=== PATIENT | female | born 1955 | race African-American/Black ===

== ENCOUNTER 2017-03-13 18:29 | Emergency (ER) | payer MEDICAID ==
[~2017-03-13] VITALS: Ht 160 cm; Wt 85.0 kg
[~2017-03-13 18:29] MED LIST: 1-ME1LIQ PO; ASPI325T PO
[2017-03-13] MEDS ORDERED: ASPI81CH37 CHEW (20:54)
[2017-03-13] MEDS ORDERED: AMLO10TA2 PO (20:54)
[2017-03-13] MEDS ORDERED: LISI-519 PO (20:54)
[2017-03-13] MEDS ORDERED: DONE5TAB7 PO (20:54)
--- NOTE | 2017-03-13 21:02 | PD ---
HPI Chief Complaint: Fall Time Seen by Provider: 20:58 Travel History International Travel<30 days: No Contact w/Intl Traveler<30days: No Traveled to known affect area: No History of Present Illness HPI 62-year-old female that presents to the ED for evaluation of fall at home. Patient has a history of what appears to be early dementia. Patient is alert and oriented to person and place but not apparent to time. She does have some sort of confusion. Patient was found by family on the floor. Per patient she fell from a barstool and landed on her left knee. Patient complains of pain to her left knee, left forearm, left hip, left foot. She denies hitting her head or losing consciousness. She does not take any blood thinners. She states that her pain is 5 out of 10. Per patient she cannot get up on her own. Unclear as to how long she had fallen 4. She has no allergies to medication. Denies any chest pain or shortness of breath. No abdominal pain. No nausea or vomiting. History is somewhat limited because of patient's dementia but she does appear to answer questions a properly at this time. No family was present at the initial evaluation. [employer] [facility] Past Medical History Asthma: No Blood Disorders: No Anxiety: No Depression: No Heart Rhythm Problems: No Cardiovascular Problems: No High Cholesterol: No Chemotherapy: No Chest Pain: No Congestive Heart Failure: No COPD: No Diabetes: No Diminished Hearing: No Endocrine: No Gastrointestinal Disorders: No Genitourinary: No Hypertension: Yes Immune Disorder: No Musculoskeletal: No Neurologic: No Psychiatric: No Reproductive: No Respiratory: No Radiation Therapy: No Sleep Apnea: No Thyroid Disease: No Past Surgical History Section: Yes Other Surgery: Yes () Social History Alcohol Use: No Tobacco Use: No Substance Use: No Allergies-Medications (Allergen,Severity, Reaction): Coded Allergies: No Known Allergies (Verified , 03/13/17) Reported Meds & Prescriptions Reported Meds & Active Scripts Active Reported Amlodipine (Amlodipine Besylate) 10 Mg Tab 10 Mg PO DAILY Lisinopril 5 Mg Tab 5 Mg PO DAILY Donepezil 5 Mg Tab 5 Mg PO HS Aspirin Low Dose (Aspirin) 81 Mg Chew 81 Mg CHEW DAILY Review of Systems ROS Limitations: Poor Historian Except as stated in HPI: all other systems reviewed are Neg Physical Exam Narrative GENERAL: SKIN: Warm and dry. HEAD: Atraumatic. Normocephalic. EYES: Pupils equal and round. No scleral icterus. No injection or drainage. ENT: No nasal bleeding or discharge. Mucous membranes pink and moist. Tongue is midline. No uvula deviation. NECK: Trachea midline. No JVD. CARDIOVASCULAR: Regular rate and rhythm. No murmurs, S3, S4. RESPIRATORY: No accessory muscle use. Clear to auscultation. Breath sounds equal bilaterally. GASTROINTESTINAL: Abdomen soft, non-tender, nondistended. Hepatic and splenic margins not palpable. MUSCULOSKELETAL: Extremities without clubbing, cyanosis, or edema. No obvious deformities. Full range of motion of the upper extremities with no obvious deformity. Patient does have some left forearm tenderness to palpation but no obvious deformity. Patient has no cervical, thoracic, lumbar spine tenderness to palpation. Patient does have some bruising and swelling on the left knee and she has some pain with movement. Pain with movement also on the left hip. 2+ pulses in the upper and lower extremities bilaterally. NEUROLOGICAL: Awake and alert. No obvious cranial nerve deficits. Motor grossly within normal limits. Five out of 5 muscle strength in the arms and legs. Normal speech. PSYCHIATRIC: Appropriate mood and affect; insight and judgment normal. Data Data Orders Ankle, Complete ([id number]) (03/13/17 20:26) Femur (Ap & Lat/2vws) (03/13/17 20:26) Forearm (2vws) (03/13/17 20:26) Knee, Complete (4vws) (03/13/17 20:26) Ice/Cold Pack (03/13/17 20:26) Pelvis, Ap Only (Routine) (03/13/17 20:26) Foot, Complete ([id number]) (03/13/17 ) Complete Blood Count With Diff (03/13/17 20:42) Basic Metabolic Panel (Bmp) (03/13/17 20:42) Magnesium (Mg) (03/13/17 20:42) Ct Brain W/O Iv Contrast(Rout) (03/13/17 ) Labs Laboratory Tests Test 03/13/17 21:20 White Blood Count 5.3 TH/MM3 Red Blood Count 4.36 MIL/MM3 Hemoglobin 13.1 GM/DL Hematocrit 38.3 % Mean Corpuscular Volume 87.9 FL Mean Corpuscular Hemoglobin 30.1 PG Mean Corpuscular Hemoglobin 34.2 % Concent Red Cell Distribution Width 13.7 % Platelet Count 257 TH/MM3 Mean Platelet Volume 8.8 FL Neutrophils (%) (Auto) 44.4 % Lymphocytes (%) (Auto) 44.4 % Monocytes (%) (Auto) 8.4 % Eosinophils (%) (Auto) 2.1 % Basophils (%) (Auto) 0.7 % Neutrophils # (Auto) 2.3 TH/MM3 Lymphocytes # (Auto) 2.3 TH/MM3 Monocytes # (Auto) 0.4 TH/MM3 Eosinophils # (Auto) 0.1 TH/MM3 Basophils # (Auto) 0.0 TH/MM3 CBC Comment DIFF FINAL Differential Comment MDM Medical Decision Making Medical Screen Exam Complete: Yes Emergency Medical Condition: Yes Medical Record Reviewed: Yes Interpretation(s) Last Impressions Radius/Ulna X-Ray 03/13/172025 Signed Impressions: Service Date/Time: February 20:52 - CONCLUSION: Unremarkable study. Constantine Blanc MD Pelvis X-Ray 03/13/172025 Signed Impressions: Service Date/Time: February 20:58 - CONCLUSION: No definite fracture is seen for technique. Constantine Blanc MD Knee X-Ray 03/13/172025 Signed Impressions: Service Date/Time: February 21:06 - CONCLUSION: Unremarkable study. Constantine Blanc MD Femur X-Ray 03/13/172025 Signed Impressions: Service Date/Time: February 21:00 - CONCLUSION: Unremarkable study. Constantine Blanc MD Ankle X-Ray 03/13/172025 Signed Impressions: Service Date/Time: February 20:42 - CONCLUSION: No definite fracture is seen for technique. Constantine Blanc MD Foot X-Ray 03/13/17 0000 Signed Impressions: Service Date/Time: February 20:46 - CONCLUSION: Chronic changes and no evidence for acute fracture. Constantine Blanc MD CT head negative Differential Diagnosis Fall versus acute versus syncope versus bruise versus contusion versus fracture Narrative Course 62-year-old female that presents to the ED for evaluation of fall. Patient was properly examined and was found to have signs and symptoms consistent appears to be fall. At This time I recommend labs and imaging. Labs and imaging showed no sign of acute disease. Family was present after the foreskin back and agrees with plan. This time this appears to be a mechanical fall. No sign of any other disease. Patient will be given a prescription for a walker as she will likely need some assistance to get about because of a contusion to her left knee. Recommend Motrin or Tylenol for pain. Close follow with PCP. See ED worsening symptoms. Case was discussed in my attending Dr. Chapman who was not aware of all findings and agrees with plan. Diagnosis Primary Impression: Fall Qualified Code: W19.XXXA - Fall, initial encounter Additional Impression: Knee contusion Qualified Code: S80.02XA - Contusion of left knee, initial encounter Patient Instructions: General Instructions Additional Instructions: Motrin or Tylenol for pain. Follow with PCP these week. See ED if worsening symptoms. Med/Other Pt SpecificInfo: No Meds Exist/No RX given Disposition: 01 DISCHARGE HOME Condition: Stable Kaleb Dowling Mar 13, 2017 21:02
--- NOTE | 2017-03-13 21:26 | RADRPT ---
EXAM DATE/TIME: 03/13/2017 20:42 [facility] COMPARISON: No previous studies available for comparison. INDICATIONS : Left ankle pain after fall. MEDICAL HISTORY : None. SURGICAL HISTORY : None. ENCOUNTER: Initial ACUITY: 1 day PAIN SCORE: 10 LOCATION: Left ankle. FINDINGS: No definite fractures, or dislocations are identified. No definite lytic or sclerotic lesion is seen . The joint spaces are well maintained. Slight hypertrophic changes present involving the medial mal leolus. CONCLUSION: No definite fracture is seen for technique. KLien Blanc MD on March 13, 2017 at 21:24 Board Certified Radiologist. This report was verified electronically.
--- NOTE | 2017-03-13 21:27 | RADRPT ---
EXAM DATE/TIME: 03/13/2017 20:52 [facility] COMPARISON: No previous studies available for comparison. INDICATIONS : Left forearm pain after fall. MEDICAL HISTORY : None. SURGICAL HISTORY : None. ENCOUNTER: Initial ACUITY: 1 day PAIN SCORE: 0/10 LOCATION: Left forearm. FINDINGS: No definite fractures, or dislocations are identified. No definite lytic or sclerotic lesion is seen . CONCLUSION: Unremarkable study. Constantine Blanc MD on March 13, 2017 at 21:25 Board Certified Radiologist. This report was verified electronically.
--- NOTE | 2017-03-13 21:27 | RADRPT ---
EXAM DATE/TIME: 03/13/2017 20:46 [facility] COMPARISON: No previous studies available for comparison. INDICATIONS : Left foot pain after fall. MEDICAL HISTORY : None. SURGICAL HISTORY : None. ENCOUNTER: Initial ACUITY: 1 day PAIN SCORE: 2/10 LOCATION: Left foot. FINDINGS: No definite fractures, or dislocations are identified. No definite lytic or sclerotic lesion is seen . Slight osteopenia is seen. There are degenerative changes within multiple joints mainly the interp halangeal joints and the first metatarsophalangeal joint. CONCLUSION: Chronic changes and no evidence for acute fracture. Constantine Blanc MD on March 13, 2017 at 21:24 Board Certified Radiologist. This report was verified electronically.
--- NOTE | 2017-03-13 21:28 | RADRPT ---
EXAM DATE/TIME: 03/13/2017 20:58 [facility] COMPARISON: No previous studies available for comparison. INDICATIONS : Pelvic pain after fall. MEDICAL HISTORY : None. SURGICAL HISTORY : None. ENCOUNTER: Initial ACUITY: 1 day PAIN SCORE: 1/10 LOCATION: Bilateral pelvis. FINDINGS: No definite fractures, or dislocations are identified. No definite lytic or sclerotic lesion is seen . The joint spaces are well maintained. There is moderate amount of stool throughout the colon. CONCLUSION: No definite fracture is seen for technique. K. Joon Blanc MD on March 13, 2017 at 21:26 Board Certified Radiologist. This report was verified electronically.
--- NOTE | 2017-03-13 21:47 | RADRPT ---
EXAM DATE/TIME: 03/13/2017 21:00 [facility] COMPARISON: No previous studies available for comparison. INDICATIONS : Left femur pain after fall. MEDICAL HISTORY : None. SURGICAL HISTORY : None. ENCOUNTER: Initial ACUITY: 1 day PAIN SCORE: 110 LOCATION: Left femur. FINDINGS: No definite fractures, or dislocations are identified. No definite lytic or sclerotic lesion is seen . CONCLUSION: Unremarkable study. Constantine Blanc MD on March 13, 2017 at 21:44 Board Certified Radiologist. This report was verified electronically.
--- NOTE | 2017-03-13 21:48 | RADRPT ---
EXAM DATE/TIME: 03/13/2017 21:06 [facility] COMPARISON: No previous studies available for comparison. INDICATIONS : Left knee pain after fall. MEDICAL HISTORY : None. SURGICAL HISTORY : None. ENCOUNTER: Initial ACUITY: 1 day PAIN SCORE: 3/10 LOCATION: Left knee. FINDINGS: No definite fractures, or dislocations are identified. No definite lytic or sclerotic lesion is seen . The joint spaces are well maintained. CONCLUSION: Unremarkable study. Constantine Blanc MD on March 13, 2017 at 21:45 Board Certified Radiologist. This report was verified electronically.
[2017-03-13 21:57] LABS: AUTOMATED NEUTROPHIL # 2.3 TH/MM3 (1.8-7.7); BASOPHIL % 0.7 % (0.0-2.0); EOSINOPHIL # 0.1 TH/MM3 (0-0.4); EOSINOPHIL % 2.1 % (0.0-4.0); HEMATOCRIT 38.3 % (35.0-46.0); HEMO FLAGS DIFF FINAL; LYMPH % 44.4 % (9.0-44.0); LYMPHOCYTE # 2.3 TH/MM3 (1.0-4.8); MEAN CELL VOLUME 87.9 FL (80.0-100.0); MEAN CORPUSCULAR HEMOGLOBIN 30.1 PG (27.0-34.0); MEAN CORPUSCULAR HGB CONC 34.2 % (32.0-36.0); MONO % 8.4 % (0.0-8.0); NEUT % 44.4 % (16.0-70.0); PLATELET COUNT 257 TH/MM3 (150-450); RED BLOOD COUNT 4.36 MIL/MM3 (4.00-5.30); RED CELL DISTRIBUTION WIDTH 13.7 % (11.6-17.2); WHITE BLOOD COUNT 5.3 TH/MM3 (4.0-11.0)
--- NOTE | 2017-03-13 22:12 | RADRPT ---
EXAM DATE/TIME: 03/13/2017 22:03 [facility] COMPARISON: MRI BRAIN W & W/O CONTRAST, July 28, 2016, 15:38. INDICATIONS : General weakness and syncopal episode RADIATION DOSE: 40.81 CTDIvol (mGy) MEDICAL HISTORY : Hypertension. SURGICAL HISTORY : None. ENCOUNTER: Initial ACUITY: 1 day PAIN SCALE: 2/10 LOCATION: Bilateral cranial TECHNIQUE: Multiple contiguous axial images were obtained of the head. Using automated exposure control and adj ustment of the mA and/or kV according to patient size, radiation dose was kept as low as reasonably a chievable to obtain optimal diagnostic quality images. FINDINGS: There is no evidence for intracranial hemorrhage, mass effect, mass lesions, or edema. The visualize d bony structures appear intact. Slight degree of brain atrophy is seen. Slight periventricular whit e matter changes are seen nonspecific mostly consistent with chronic small vessel ischemic changes. There are no signs of acute infarction for technique. CONCLUSION: Slight atrophic and small vessel ischemic changes without any evidence for acute hemorrhage or mass effect. Constantine Blanc MD on March 13, 2017 at 22:10 Board Certified Radiologist. This report was verified electronically.
[2017-03-13 22:15] LABS: MAGNESIUM 2.1 MG/DL (1.5-2.5)
[2017-03-13 22:16] LABS: POTASSIUM 4.3 MEQ/L (3.5-5.1)
[2017-03-13] MEDS ORDERED: GETGO ROLLING W1 MI1 (22:20)
== END 2017-03-13 23:19 | disposition home or self-care (01) ==
LOC: NEPC 18:29
DX: S80.02XA Contusion of left knee, initial encounter (principal); M25.552 Pain in left hip; M25.572 Pain in left ankle and joints of left foot; M79.632 Pain in left forearm; I10 Essential (primary) hypertension; W08.XXXA Fall from other furniture, initial encounter; Y92.009 Unspecified place in unspecified non-institutional (private) residence as the place of occurrence of the external cause
CPT/HCPCS: 70450; 72170; 73090; 73552; 73564; 73610; 73630; 80048; 83735; 85025

== ENCOUNTER 2017-11-03 12:55 | Emergency (ER) | payer MEDICAID ==
[~2017-11-03 12:55] MED LIST changes: -1-ME1LIQ PO; +AMLO10TA2 PO; -ASPI325T PO; +ASPI81CH6 CHEW; +DONE5TAB7 PO; +GETGO ROLLING W1 MI1; +LISI-519 PO
[2017-11-03 12:56] VITALS: BP 190/87; PULSE 72; RESP 16; TEMP 98.3; O2SAT 95
--- NOTE | 2017-11-03 14:31 | RADRPT ---
EXAM DATE/TIME: 11/03/2017 14:12 [facility] COMPARISON: CT BRAIN W/O CONTRAST, March 13, 2017, 22:03. INDICATIONS : Fall today. RADIATION DOSE: 35.11 CTDIvol (mGy) MEDICAL HISTORY : Hypertension. SURGICAL HISTORY : None. ENCOUNTER: Initial ACUITY: 1 day PAIN SCALE: 0/10 LOCATION: cranial TECHNIQUE: Multiple contiguous axial images were obtained of the head. Using automated exposure control and adj ustment of the mA and/or kV according to patient size, radiation dose was kept as low as reasonably a chievable to obtain optimal diagnostic quality images. DICOM format image data is available electro nically for review and comparison. FINDINGS: CEREBRUM: The ventricles are normal for age. Areas of low attenuation in white matter. No evidence of midline s hift, mass lesion, hemorrhage or acute infarction. No extra-axial fluid collections are seen. POSTERIOR FOSSA: The cerebellum and brainstem are intact. The 4th ventricle is midline. The cerebellopontine angle i s unremarkable. EXTRACRANIAL: The visualized portion of the orbits is intact. Soft tissue contusion left frontal region. SKULL: The calvaria is intact. No evidence of skull fracture. CONCLUSION: 1. No acute intracranial abnormality. 2. Nonspecific white matter changes. 3. Left frontal soft tissue contusion Ghassan Cisse MD on November 03, 2017 at 14:28 Board Certified Radiologist. This report was verified electronically.
--- NOTE | 2017-11-03 14:35 | RADRPT ---
EXAM DATE/TIME: 11/03/2017 14:12 [facility] COMPARISON: No previous studies available for comparison. INDICATIONS : Trauma, fall. RADIATION DOSE: 20.92 CTDIvol (mGy) MEDICAL HISTORY : Hypertension. SURGICAL HISTORY : None. ENCOUNTER: Initial ACUITY: 1 day PAIN SCALE: 0/10 LOCATION: neck TECHNIQUE: Volumetric scanning of the cervical spine was performed. Multiplanar reconstructions in the sagittal, coronal and oblique axial planes were performed. Using automated exposure control and adjustment o f the mA and/or kV according to patient size, radiation dose was kept as low as reasonably achievable to obtain optimal diagnostic quality images. DICOM format image data is available electronically f or review and comparison. FINDINGS: VERTEBRAE: Normal vertebral body height. ALIGNMENT: No evidence of subluxation. C2-C3: The bony spinal canal is normal in size. No evidence of disc bulge or herniation. The neural forami na are bilaterally patent. C3-C4: The bony spinal canal is normal in size. No evidence of disc bulge or herniation. The neural forami na are bilaterally patent. C4-C5: Posterior disc osteophyte complex without canal stenosis. The neural foramina are bilaterally patent . C5-C6: Posterior disc osteophyte complex without canal stenosis. The neural foramina are bilaterally patent . C6-C7: Posterior disc osteophyte complex without canal stenosis. The neural foramina are bilaterally patent . C7-T1: The bony spinal canal is normal in size. No evidence of disc bulge or herniation. The neural forami na are bilaterally patent. CONCLUSION: 1. No fracture or subluxation. Ghassan Cisse MD on November 03, 2017 at 14:31 Board Certified Radiologist. This report was verified electronically.
--- NOTE | 2017-11-03 14:50 | PD ---
HPI Chief Complaint: Fall Time Seen by Provider: 14:43 Travel History International Travel<30 days: No Contact w/Intl Traveler<30days: No Traveled to known affect area: No History of Present Illness HPI 62-year-old female with history of Parkinson's disease, is brought in by her family after tripping and falling at home. Patient tripped Over a shoe, falling forward and hitting her left scalp. Patient is not complaining of headache, neck pain, or other injury. Patient is not on anticoagulants. Patient has a noted "bump" on the left forehead. There are no open wounds or abrasions. Patient has no known drug allergies. CT of the head and neck were ordered in triage. PFSH Past Medical History Asthma: No Blood Disorders: No Anxiety: No Depression: No Heart Rhythm Problems: No Cardiovascular Problems: No High Cholesterol: No Chemotherapy: No Chest Pain: No Congestive Heart Failure: No COPD: No Diabetes: No Diminished Hearing: No Endocrine: No Gastrointestinal Disorders: No Genitourinary: No Hypertension: Yes Immune Disorder: No Musculoskeletal: No Neurologic: No Psychiatric: No Reproductive: No Respiratory: No Radiation Therapy: No Sleep Apnea: No Thyroid Disease: No Past Surgical History Section: Yes Other Surgery: Yes () Social History Alcohol Use: No Tobacco Use: No Substance Use: No Allergies-Medications (Allergen,Severity, Reaction): Coded Allergies: No Known Allergies (Verified , 03/13/17) Reported Meds & Prescriptions Reported Meds & Active Scripts Active Walker Rolling/GetGo (Device) 1 Mis Mis 1 Ea .ROUTE DIRECTED Reported Amlodipine (Amlodipine Besylate) 10 Mg Tab 10 Mg PO DAILY Lisinopril 5 Mg Tab 5 Mg PO DAILY Donepezil 5 Mg Tab 5 Mg PO HS Aspirin Low Dose (Aspirin) 81 Mg Chew 81 Mg CHEW DAILY Review of Systems Except as stated in HPI: all other systems reviewed are Neg General / Constitutional: No: Fever Eyes: No: Visual changes HENT: No: Headaches Cardiovascular: No: Chest Pain or Discomfort Respiratory: No: Shortness of Breath Gastrointestinal: No: Abdominal Pain Genitourinary: No: Dysuria Musculoskeletal: No: Pain Skin: No Rash Neurologic: No: Weakness Psychiatric: No: Depression Endocrine: No: Polydipsia Hematologic/Lymphatic: No: Easy Bruising Physical Exam Narrative GENERAL: Patient appears in no obvious distress. SKIN: Warm and dry. Patient has a bump to the upper lateral left forehead, there is no abrasion or open wounds. HEAD: Normocephalic. Patient has mild tenderness with palpation to the contusion area. EYES: Pupils equal and round. No scleral icterus. No injection or drainage. ENT: No nasal bleeding or discharge. Mucous membranes pink and moist. No dental injury. Pharynx is clear. NECK: Trachea midline. No bony tenderness or step-off. Range of motion is full for patient. CARDIOVASCULAR: Regular rate and rhythm. RESPIRATORY: No accessory muscle use. Clear to auscultation. Breath sounds equal bilaterally. GASTROINTESTINAL: Abdomen soft, non-tender, nondistended. Hepatic and splenic margins not palpable. MUSCULOSKELETAL: Extremities without clubbing, cyanosis, or edema. No obvious deformities. Patient has parkinsonian movements. NEUROLOGICAL: Awake and alert. No obvious cranial nerve deficits. Motor grossly within normal limits. Five out of 5 muscle strength in the arms and legs. Normal speech. PSYCHIATRIC: Appropriate mood and affect; insight and judgment normal. Data Data Last Documented VS Vital Signs Date Time Temp Pulse Resp B/P (MAP) Pulse Ox O2 Delivery O2 Flow Rate FiO2 11/03/17 12:56 98.3 72 16 190/87 (121) [address] Brain W/O Iv Contrast(Rout) (11/03/17 ) Ct Cerv Spine W/O Contrast (11/03/17 ) MDM Medical Decision Making Medical Screen Exam Complete: Yes Emergency Medical Condition: Yes Differential Diagnosis Trip and fall. Parkinson's disease. Scalp contusion. Narrative Course CT of the head and neck was performed. No acute findings are noted on CT. Patient has no complaints of pain at this time. Patient take Tylenol if necessary for any head or face pain. Patient is to use an ice pack to the injured area as needed. Patient can follow-up with her primary care physician as needed. Patient should return with any worsening headache not relieved by Tylenol or ice pack. Diagnosis Primary Impression: Contusion of scalp, initial encounter Additional Impression: Fall Qualified Codes: W19.XXXA - Unspecified fall, initial encounter Referrals: Primary Care Physician Patient Instructions: General Instructions, Scalp Contusion in Adults (ED) Additional Instructions: No acute findings are noted on CT. Patient has no complaints of pain at this time. Patient take Tylenol if necessary for any head or face pain. Patient is to use an ice pack to the injured area as needed. Patient can follow-up with her primary care physician as needed. Patient should return with any worsening headache not relieved by Tylenol or ice pack. Med/Other Pt SpecificInfo: No Change to Meds, No Meds Exist/No RX given Disposition: 01 DISCHARGE HOME Condition: Stable Poncho Townsend Nov 03, 2017 14:49
== END 2017-11-03 15:11 | disposition home or self-care (01) ==
LOC: NEPD 12:55
DX: S00.03XA Contusion of scalp, initial encounter (principal); G20 Parkinson's disease; I10 Essential (primary) hypertension; W01.0XXA Fall on same level from slipping, tripping and stumbling without subsequent striking against object, initial encounter; Y92.009 Unspecified place in unspecified non-institutional (private) residence as the place of occurrence of the external cause
CPT/HCPCS: 70450; 72125; 99284